=== PATIENT | female | born 1970 | race African-American/Black ===

== ENCOUNTER 2017-07-20 23:14 | Emergency (ER) | payer OTHER ==
[~2017-07-20] VITALS: Ht 162.6 cm; Wt 113.4 kg
--- NOTE | ~2017-07-20 | CT2 ---
[facility] A Service of [facility] RADIOLOGY TEXT RESULTS PATIENT: YARI COSTELLO LOCATION: SED : 66 UNIT #: [id number] AGE: [address]: Layton Crocker MD SEX: F ORDER DR: [id number] [address] [address] [id number] MR#: [id number] Acc #: [id number] NAME: YARI COSTELLO : 1970 SEX: F STUDY DATE/TIME: 07/21/2017 1:10 UNIT: SED ROOM: STUDY DESCRIPTION: CT Abd and Pelv W Cont Attending Physician: Layton Crocker M.D. Ordering Physician: Layton Crocker M.D. Primary Care Physician: Arnulfo Varma M.D. MEDICAL IMAGING REPORT This report is preliminary unless electronic signature is present. EXAM CT abdomen and pelvis with contrast, 07/21/2017. HISTORY 46-year-old female in the ED complaining of 1-week history of epigastric pain with nausea, vomiting and constipation. TECHNIQUE CT examination of the abdomen and pelvis with IV contrast. GI contrast was not ordered, limiting evaluation of the GI tract. This CT exam was performed with one or more of the following radiation dose reduction techniques: automatic exposure control, adjustment of mA and/or kV according to patient size, and iterative reconstruction. ABDOMEN FINDINGS Cholecystectomy. Mild intrahepatic and extrahepatic bile duct dilatation is unchanged since 07/30/2015. Liver, pancreas and spleen are otherwise negative. Postoperative changes of gastric bypass surgery. There is no gastric distension, but there is mild dilatation of the visualized lower thoracic esophagus. Small bowel and colon are normal in caliber and appearance, as imaged. Moderately large volume stool throughout the colon. The appendix is not seen. Normal-caliber abdominal aorta. Both kidneys are negative with no evidence of urinary obstruction. PELVIS FINDINGS Uterus, ovaries, urinary bladder and rectum are within normal limits. Postop changes lower lumbar spine fusion surgery with hardware in place. Limited lung base images show no active disease in the lower chest. IMPRESSION [facility] A Service of [facility] RADIOLOGY TEXT RESULTS PATIENT: YARI COSTELLO LOCATION: [facility] [place] : [birth year] UNIT #: [id number] AGE: [address]: Layton Crocker MD SEX: F ORDER DR: 1. No acute abnormality is identified within the abdomen or pelvis. 2. Postop changes previous gastric bypass surgery. Mild dilatation of the visualized lower thoracic esophagus. 3. Cholecystectomy. Stable mild intrahepatic and extrahepatic bile duct dilatation, unchanged since 07/30/2015. 4. Moderate volume of stool throughout the colon. Dictated by... Bari Serna M.D. THIS IS AN ELECTRONICALLY VERIFIED REPORT Bari Serna M.D. at 07/21/2017 10:30 PM NESTOR/adilene TD: 07/21/2017 09:00 JOB #: [id number] MEDICAL IMAGING REPORT Page 1 of 1
[~2017-07-20 23:14] MED LIST: AMOXICILLIN PO; AUGMENTIN PO; AZOR; BENTYL10 MG DOB; ESGIC PLUS PO; FERRO-TIME325 MG PO; FERROUS GLUCON325 M1 PO; FLEXERIL PO; FLEXERIL10 MG PO; HCTZ PO; HYDROCHLOROTHIA25 MG PO; LASIX PO; LORTAB 5/500 TA1 TA1 PO; LORTAB 7.5-5001 TAB PO; LOSARTAN POTASS50 MG PO; MEDROL PO; METHADONE PO; MICARDIS PO; MOBIC PO; MOTRIN600 M1 PO; MOTRIN600 MG; NAPROSYN500 MG PO; NAPROXEN PO; PERCOCET 10/3251 TAB PO; PERCOCET5/325 PO; PERCOCET7.5 PO; PHENERGAN25 M1 DOB; PHENTERMINE H37.5 M1 PO; POTASSIUM CHLO10 ME1 PO; PREDNISONE10 MG/DOSE PO; ROBAXIN500 MG PO
[2017-07-20] MEDS ORDERED: NO MEDICATIONS (23:29)
[2017-07-21 00:17] LABS: EOSINOPHIL# 0.3 X10e3 (0-0.7); MEAN PLATELET VOLUME 8.4 FL (6.5-11.5); NEUTROPHIL# 3.3 X10e3 (1.5-7.1); WHITE BLOOD COUNT 6.3 X10e3 (4.0-10.5)
[2017-07-21 00:19] LABS: BASOPHIL% 0.6 % (0-2.5); EOSINOPHIL% 4.7 % (0.0-7.0); HEMATOCRIT 19.3 % (35.0-45.0); LYMPHOCYTE# 1.9 X10e3 (1.0-3.5); LYMPHOCYTE% 30.7 % (17.0-45.0); MEAN CELL VOLUME 64.4 FL (83-96); MEAN CORPUSCULAR HGB CONC 29.5 g/dL (30-36); MONOCYTE# 0.8 X10e3 (0-1.0); PLATELET COUNT 397 X10e3 (140-420); RED CELL DISTRIBUTION WIDTH 31.2 % (11.0-15.5)
[2017-07-21 00:23] LABS: DIFF IND NO; HEMOGLOBIN 5.7 gm/dL (12.0-16.0)
[2017-07-21 00:37] LABS: ALBUMIN SERUM 3.3 g/dL (3.5-5.0); ALKALINE PHOSPHATASE 105 U/L (32-92); ALT (SGPT) 13 U/L (10-40); AST (SGOT) 22 U/L (10-42); BILIRUBIN, DIRECT 0.1 mg/dL (0.0-0.2); BILIRUBIN,INDIRECT 0.1 mg/dL (0.0-0.9); BILIRUBIN,TOTAL 0.2 mg/dL (0.2-2.0); BLOOD UREA NITROGEN 12 mg/dL (9-23); CALCIUM SERUM 8.1 mg/dL (8.4-10.2); CARBON DIOXIDE 25 mmol/L (22-31); CHLORIDE 100 mmol/L (100-111); CREATININE SERUM 0.5 mg/dL (0.6-1.4); GLOM FILT RATE Estimated 132.7 mL/min (>60); GLUCOSE FASTING 90 mg/dL (70-110); LIPASE 19 U/L (22-51); POTASSIUM 3.4 mmol/L (3.5-5.1); PROTEIN TOTAL SERUM 7.4 g/dL (6.0-8.3); SODIUM 132 mmol/L (135-145)
[2017-07-21 00:39] LABS: AMYLASE <7 U/L (0-46)
[2017-07-21 01:16] LABS: URINE SOURCE CLEAN CATCH
[2017-07-21 01:19] LABS: URINE APPEARANCE CLEAR; URINE BILIRUBIN NEG (NEG); URINE BLOOD NEG (NEG); URINE COLOR YELLOW; URINE GLUCOSE NEG (NORM); URINE KETONE NEG (NEG); URINE LEUKOCYTE ESTERASE 1+ (NEG); URINE NITRATE NEG (NEG); URINE PROTEIN NEG (NEG); URINE SPECIFIC GRAVITY 1.015 (1.003-1.035)
[2017-07-21 01:21] LABS: CULTURE INDICATED? YES; MICRO INDICATED? YES; URINE BACTERIA 1+ (NEG); URINE SQUAMOUS EPITHELIAL CELL OCCAS /[HPF]; URINE TRANSITIONAL EPI CELLS FEW /[HPF]
== END 2017-07-21 03:05 | disposition home or self-care (01) ==
LOC: SED 23:14
PROVIDERS: Emergency Medicine
DX: N39.0 Urinary tract infection, site not specified (principal); D64.9 Anemia, unspecified
CPT/HCPCS: 36415; 74177; 80048; 80076; 81003; 82150; 83690; 84703; 85025; 87086; 96361; 96374; 96375; 99284; J2405; J2550; Q9967